=== PATIENT | male | born 1985 | race American Indian/Alaskan Native ===

== ENCOUNTER 2016-11-12 12:30 | Observation (INO) | payer BC ==
[2016-11-12 12:42] VITALS: RESP 18; TEMP 98; BMI 27.1
[2016-11-12] MEDS ORDERED: Sodium Chloride 0.9% 1,000 ML IV SCH (12:45)
--- NOTE | 2016-11-12 12:48 | ED PDOC ---
HPI: Psych/Substance Abuse Time Seen by Provider: 11/12/16 12:35 Chief Complaint (Nursing): Substance Abuse Additional Complaint(s): Patient is a 31 y/o M with hx of alcohol abuse, brought in by EMS with altered mental status. Per EMS, patient was found intoxicated next to his car. Patient has no signs of trauma. Patient protecting airway and moving extremities spontaneously. No other history available. Past Medical History Vital Signs: Last Vital Signs Temp 98 F 11/12/16 12:39 Pulse 98 H 11/12/16 12:39 Resp 18 11/12/16 12:39 BP 124/76 11/12/16 12:39 Pulse Ox 99 11/12/16 12:39 - Medical History PMH: Bipolar Disorder - Family History Family History: States: Unknown Family Hx - Home Medications Home Medications: Ambulatory Orders Medication Instructions Recorded Cholecalciferol [Vitamin D 1000 IU] 1 tab PO DAILY 04/25/16 - Allergies Allergies/Adverse Reactions: Allergies Allergy/AdvReac Type Severity Reaction Status Date / Time No Known Allergies Allergy Verified 04/25/16 22:51 Review of Systems Review Of Systems: ROS cannot be obtained secondary to pt's inabilty to answer questions. Physical Exam - Physical Exam Appears: Positive for: Well, Non-toxic Head Exam: Positive for: ATRAUMATIC, NORMAL INSPECTION, NORMOCEPHALIC Skin: Positive for: Normal Color, Warm, DRY Eye Exam: Positive for: Normal appearance, Other (midpoint and reactive) Neck: Positive for: Supple Cardiovascular/Chest: Positive for: Regular Rate, Rhythm Respiratory: Positive for: Normal Breath Sounds. Negative for: Crackles, Rhonchi, Stridor, Wheezing Gastrointestinal/Abdominal: Positive for: Soft. Negative for: Tenderness, Mass , Guarding Back: Positive for: Normal Inspection Extremity: Positive for: Other (spontaneous movement of extremities x 4) Neurologic/Psych: Positive for: Other (lethargic, maintaining airway) - Laboratory Results Result Diagrams: 11/12/16 12:48 11/12/16 12:48 - ECG O2 Sat by Pulse Oximetry: 99 Medical Decision Making Medical Decision Making: FS on arrival 101. EKG shows NSR at 83bpm with normal intervals and no ST changes. -ct head/ct c-spine to r/o traumatic injury -labs -NS bolus -monitoring for sobriety ED OBSERVATION Date of observation admission: 11/12/16 Time of observation admission: 13:06 - Observation admission statement Patient is being placed in observation because:: alcohol intoxication - Goals of Observation Goals of observation are:: monitoring for sobriety - Progress Note Progress Note: 13:21 Alcohol 441. 13:[address] c-spine negative for acute injury 14:00 Labs grossly normal. Patient resting on full decator operator. 15:00 Patient sleeping in bed on full decator operator. Will sign out to Dr. Fernandez to monitor for sobriety and reevaluate when sober Disposition - Clinical Impression Clinical Impression: Alcohol intoxication - Disposition Disposition: Transfer of Care Disposition Time: 13:05 Condition: FAIR Forms: [employer] (Stateless)
[2016-11-12 13:04] LABS: BASO # 0.1 K/uL (0.0-0.2); BASO % 1.2 % (0.0-2.0); EOS # 0.2 K/uL (0.0-0.7); EOS % 2.2 % (0.0-4.0); HEMATOCRIT 45.9 % (35.0-51.0); LYMPH % 35.7 % (20.0-40.0); MEAN CELL VOLUME 91.5 fl (80.0-94.0); MEAN CORPUSCULAR HEMOGLOBIN 31.3 pg (27.0-31.0); MEAN CORPUSCULAR HGB CONC 34.2 g/dL (33.0-37.0); MEAN PLATELET VOLUME 7.3 fl (7.2-11.7); MONO # 0.8 K/uL (0.0-0.8); NEUT # 4.4 K/uL (1.8-7.0); NEUT % 51.9 % (50.0-75.0); NRBC % 0.1 % (0.0-0.0); RED CELL DISTRIBUTION WIDTH 13.4 % (11.5-14.5); WHITE BLOOD COUNT 8.4 K/uL (4.8-10.8)
[2016-11-12 13:06] LABS: ALB/GLOB RATIO 1.2 (1.0-2.1); ALKALINE PHOSPHATASE 77 U/L (38-126); ALT/SGPT 49 U/L (21-72); AST/SGOT 39 U/L (17-59); BILIRUBIN,TOTAL 0.5 mg/dl (0.2-1.3); BLOOD UREA NITROGEN 12 mg/dl (9-20); CALCIUM 8.5 mg/dL (8.4-10.2); CARBON DIOXIDE 24 mmol/L (22-30); CHLORIDE 108 mmol/L (98-107); GFR AFRICAN-AMERICAN > 60; GLUCOSE,RANDOM 116 mg/dL (75-110); POTASSIUM 4.4 MMOL/L (3.6-5.0); SODIUM 146 mmol/l (132-148); TOTAL PROTEIN 8.6 G/DL (6.3-8.2)
[2016-11-12 13:20] LABS: ALCOHOL SERUM 441 mg/dl (0-10)
--- NOTE | 2016-11-12 13:24 | CT ---
PROCEDURE: CT HEAD WITHOUT CONTRAST. HISTORY: Altered mental status. COMPARISON: 04/26/2016 TECHNIQUE: Axial computed tomography images were obtained through the head/brain without intravenous contrast. Radiation dose: Total exam DLP = 872.49 mGy-cm. This CT exam was performed using one or more of the following dose reduction techniques: Automated exposure control, adjustment of the mA and/or kV according to patient size, and/or use of iterative reconstruction technique. FINDINGS: HEMORRHAGE: No intracranial hemorrhage. BRAIN: No mass effect or edema. No atrophy or chronic microvascular ischemic changes. VENTRICLES: Unremarkable. No hydrocephalus. CALVARIUM: Unremarkable. PARANASAL SINUSES: Severe pansinusitis, similar in degree in distribution to that seen previously. MASTOID AIR CELLS: Unremarkable as visualized. No inflammatory changes. OTHER FINDINGS: None. IMPRESSION: No acute intracranial abnormalities. No significant findings to account for the clinical presentation. No significant interval change compared to the prior examination(s).
--- NOTE | 2016-11-12 13:37 | CT ---
PROCEDURE: CT Cervical Spine without contrast HISTORY: Trauma COMPARISON: None available. TECHNIQUE: Axial computed tomography images were obtained of the cervical spine without the use of intravenous contrast. Coronal and sagittal reformatted images were created and reviewed. Radiation dose: Total exam DLP = 685.84 mGy-cm. This CT exam was performed using one or more of the following dose reduction techniques: Automated exposure control, adjustment of the mA and/or kV according to patient size, and/or use of iterative reconstruction technique. FINDINGS: VERTEBRAE: No acute fracture. Mild rotary scoliosis/ torticollis. DISCS/SPINAL CANAL/NEURAL FORAMINA: No significant central canal or neural foraminal stenosis. Discs heights are grossly preserved. PARASPINAL SOFT TISSUES: Unremarkable. OTHER FINDINGS: Incompletely visualize sinusitis, chronic. IMPRESSION: No acute findings related to/accounting for the clinical presentation. Additional benign and/or incidental findings described above.
--- NOTE | 2016-11-12 15:19 | ED PDOC ---
- Laboratory Results Result Diagrams: 11/12/16 12:48 11/12/16 12:48 - ECG O2 Sat by Pulse Oximetry: 99 Medical Decision Making Medical Decision Making: Time: 1500 --Patient was signed off to provider by Dr. Nay Hubbard. Pending clinical sobriety. --Patient is resting comfortably with stable vital signs. Time: 1630 --Patient continues to rest comfortably with stable vitals. Time: 1645 --Patient awake and aggressive. Became threat to self and staff. --Ativan 2mg IM and 1:1 OBS ordered. Time: 1800 --Patient is resting comfortably again with stable vitals. Time: 0 --Patient is resting comfortably again with stable vitals. Time: 2099 --Patient is resting comfortably again with stable vitals. Scribe Attestation: Documented by Brook Ayala, acting as a scribe for Rachid Yañez MD. Provider Scribe Attestation: All medical record entries made by the Scribe were at my direction and personally dictated by me. I have reviewed the chart and agree that the record accurately reflects my personal performance of the history, physical exam, medical decision making, and the department course for this patient. I have also personally directed, reviewed, and agree with the discharge instructions and disposition. 2351: Stable. Dr. Vasquez to take over care. Fu on sobriety. Had ativan earlier for agitation. Disposition - Clinical Impression Clinical Impression: Alcohol intoxication - POA Present On Arrival: None - Disposition Disposition: Transfer of Care Disposition Time: 23:52 Condition: FAIR
[2016-11-12 18:05] VITALS: BP 104/69; PULSE 88
[2016-11-12 18:33] VITALS: O2SAT 99
--- NOTE | 2016-11-12 23:56 | ED PDOC ---
- Laboratory Results Result Diagrams: 11/12/16 12:48 11/12/16 12:48 - ECG O2 Sat by Pulse Oximetry: 99 (RA) Pulse Ox Interpretation: Normal Medical Decision Making Medical Decision Making: Receiving sign out: Patient signed out to me by Dr. Yañez at 00:00 pending re-evaluation, clinical sobriety and final disposition. Scribe Attestation: Documented by Sandi Hughes acting as a scribe for Gianni Vasquez MD Provider Scribe Attestation: All medical record entries made by the Scribe were at my direction and personally dictated by me. I have reviewed the chart and agree that the record accurately reflects my personal performance of the history, physical exam, medical decision making, and the department course for this patient. I have also personally directed, reviewed, and agree with the discharge instructions and disposition. Disposition - Clinical Impression Clinical Impression: Alcohol intoxication - POA Present On Arrival: None - Disposition Disposition: Routine/Home Disposition Time: 13:06 Condition: FAIR ED OBSERVATION Date of observation admission: 11/12/16 Time of observation admission: 13:06 - Observation admission statement Patient is being placed in observation because:: Pt acutely intoxicated - Goals of Observation Goals of observation are:: Pending clinical sobriety. - Progress Note Progress Note: 11/13/16 00:12 Pt awake, alert and oriented with steady gait. Patient is stable for discharge home.
--- NOTE | 2016-11-14 11:20 | CARD ---
APPROVED REPORT EKG Measurement Heart [id number] <Conclusion> Normal sinus rhythm Normal ECG
== END 2016-11-13 00:28 | disposition home or self-care (01) ==
LOC: H.ER 12:30 → H.EROBSV 19:14
PROVIDERS: ADMIT Emergency Medicine; ATTEND Emergency Medicine
DX: F10.129 Alcohol abuse with intoxication, unspecified (principal); F31.9 Bipolar disorder, unspecified; F10.10 Alcohol abuse, uncomplicated; R41.82 Altered mental status, unspecified
CPT/HCPCS: 70450; 72125; 80053; 82550; 82948; 85025; 93005; 96360; 96372; 99283; G0378; G0480; J2060; J7040